=== PATIENT | male | born 1940 | race Caucasian/White ===

== ENCOUNTER 2019-10-13 21:32 | Inpatient (IN) | payer MEDICARE, OTHER ==
[~2019-10-13] VITALS: Ht 172.7 cm; Wt 85.3 kg
[~2019-10-13 21:32] MED LIST: ADULT LOW DOSE81 MG PO; AMLODIPINE BESY10 MG PO; ASPIRIN EC325 MG PO; ATORVASTATIN CA40 MG PO; CIPRO500 MG PO; COZAAR 50 MG TA50 M2; COZAAR 50 MG TA50 M2 PO; FINASTERIDE5 MG PO; FISH OIL 1,001000 M2; FISH OIL 1,001000 M2 PO; FLAGYL500 M1 PO; FLAGYL500 MG PO; FLOMAX0.4 MG PO; FLORINEF ACETA0.1 MG PO; HYDROCODONE-ACE10 ML PO; IRON; LISINOPRIL10 MG PO; LOPRESSOR25 PO; MAXZIDE-25 MG1 EACH PO; MIRALAX17 GM PO; NICOTINE TRANSD21 M1 TOP; NORCO 5-325 TA1 EAC1 PO; NORCO 5-325 TA1 EACH PO; NORVASC10 MG PO; OMEPRAZOLE20 MG PO; PERCOCET 10-321 EACH PO; PLAVIX 75 MG TA75 M1 PO; PLAVIX 75 MG TA75 MG PO; PROSCAR 5MG TABL5 MG PO; SIMVASTATIN10 MG PO; SIMVASTATIN40 MG; SPIRIVA PO; STRESSTABS1 EACH PO; TESSALON PERLE100 MG PO; TOPAMAX 25 MG T25 M1 PO; VIAGRA100 MG PO; XANAX XR1 MG PO; XANAX1 MG PO; ZOFRAN ODT4 M1 PO; ZOFRAN ODT4 MG PO
[2019-10-13 21:37] VITALS: BP 131/73
[2019-10-13 21:57] LABS: ABSOLUTE BASOPHILS 0.1 thou/uL (0.0-0.2); ABSOLUTE EOSINOPHILS 0.6 thou/uL (0.0-0.7); ABSOLUTE LYMPHOCYTES 2.2 thou/uL (0.8-5.3); ABSOLUTE NEUTROPHILS 4.6 thou/uL (1.6-8.1); BASOPHILS 1.3 %; EOSINOPHILS 6.9 %; HEMATOCRIT 44.8 % (42.0-52.0); HEMOGLOBIN 16.1 gm/dL (14.0-18.0); LYMPHOCYTES 25.7 %; MCH 35.7 pg (26.0-34.0); MCHC 35.9 g/dL (28.0-37.0); MCV 99.4 fL (80.0-100.0); MONOCYTES 12.1 %; MPV 7.9 fl. (7.2-11.1); NUCLEATED RBCS 0 /100WBC; PLATELET COUNT* 172 thou/uL (150-400); RBC 4.51 mil/uL (4.50-6.00); RDW-CV 13.1 % (10.5-14.5); WBC 8.6 thou/uL (4.0-11.0)
[2019-10-13 22:04] LABS: CALCIUM 8.9 mg/dL (8.5-10.1); CREATININE 1.2 mg/dL (0.6-1.3); POTASSIUM 3.9 mmol/L (3.5-5.1)
[2019-10-13] MEDS ORDERED: PROSCAR 5MG TABL5 M1 PO (22:04)
[2019-10-13] MEDS ORDERED: TOPROL XL25 MG PO (22:04)
[2019-10-13] MEDS ORDERED: SIMVASTATIN80 MG PO (22:04)
[2019-10-13] MEDS ORDERED: ALPRAZOLAM ER1 MG PO (22:05)
[2019-10-13 22:09] LABS: INR 1.1
[2019-10-13 22:14] LABS: ALBUMIN 3.7 g/dL (3.4-5.0); TOTAL BILIRUBIN 0.4 mg/dL (<0.1-1.0); TOTAL PROTEIN 7.3 g/dL (6.4-8.2)
[2019-10-14 01:00] VITALS: BP 124/72
[2019-10-14 02:10] VITALS: BP 124/76
[2019-10-14 04:00] VITALS: BP 142/79
[2019-10-14] MEDS ORDERED: COZAAR 25 MG TA25 M1 PO (05:12)
[2019-10-14 09:20] VITALS: BP 123/87
[2019-10-14 09:24] VITALS: BP 123/87
--- NOTE | 2019-10-14 10:16 | EKG ---
[place] [address] ELECTROCARDIOGRAM REPORT Name: MARCIE GUDINO [place] Room: [address] ADM IN M.R.#: [id number] Admission: 10/13/19 Attend Phys: Madison Chavez Discharge: Date of : 44 Report #: [id number] THIS REPORT FOR: //name// [facility] ED Test Date: 2019-10-13 Test Time: 21:39:10 Pat Name: MARCIE GUDINO Department: Room: [facility] Gender: M Hoister: ALON : 1940 Requested By: Violet Louis Order Number: [id number] MD: Jair Drew Measurements Intervals [place] Rate: 91 P: 48 MI: 230 QRS: 14 QRSD: 110 T: 91 QT: 365 QTc: 450 Interpretive Statements Sinus rhythm septal q waves noted Multiple ventricular premature complexes Prolonged MI interval nonspecific st changes Compared to ECG 08/31/2017 09:22:05 Ventricular premature complex(es) now present First degree AV block now present Q waves now present Electronically Signed On 10-14-2019 10:15:39 BUSINESS INTELLIGENCE REPORTING ANALYST by Jair Drew [email or web address] <ELECTRONICALLY SIGNED> By: Jair Drew MD, [facility] 10/14/19 1015 38 38 Jair Drew MD, [facility] /EPI
--- NOTE | 2019-10-14 16:21 | CON ---
[address] [address] CONSULTATION Name: MARCIE GUDINO [place] Room: [address] IN M.R.#: [id number] Admission: 10/13/19 Attend Phys: Madison Chavez Discharge: 10/14/19 Date of : 44 Report #: [id number] THIS REPORT FOR: //name// CC: Holland Webber DO DATE OF SERVICE: 10/14/2019 CARDIOLOGY CONSULTATION HISTORY OF PRESENT ILLNESS: The patient is a 79-year-old white male who I was asked to see in the hospital today after he complained of chest pain. The patient has extensive and complicated past medical history. Unfortunately, most of his care is not here at [facility]. He states that he had his first coronary angioplasty at [facility] when he was only 43 [address] Flores at [facility]. He has had several stents since that time. Several years ago, he eventually underwent quadruple coronary artery bypass surgery and replacement of the aortic valve using a tissue valve. 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 His last echocardiogram was within the past year. He is not very active because of arthritis in his legs. He was actually admitted here to [facility] earlier this month with anxiety and headache. He was doing well until last night, he was at home, felt a discomfort in his chest, did not go into his arms or jaw; shortness of breath, diaphoresis, nausea. He took antacids, did seem to help. The pain returned. His brought him to the Emergency Room last night. He has had no further chest pain. I was asked to see him for further evaluation and treatment. Denies any exertional dyspnea, palpitations, syncope, or cough. Denied the pain being related to food. PAST MEDICAL HISTORY: Otherwise, he has had previous resection of abdominal aortic aneurysm years ago. He has had hemorrhoids. He has had stents placed in his bilateral iliacs. He has a history of hypertension, hyperlipidemia, pacemaker inserted several years ago after he was noted to have 6-second pauses. CURRENT MEDICATIONS: Consist of the following list. He is on omeprazole, aspirin, Spiriva, Proscar, simvastatin, losartan, metoprolol, Xanax. He is no longer on Plavix. He does wear a nicotine patch. ALLERGIES: HE HAS AN ALLERGY TO CONTRAST AND PENICILLIN. FAMILY HISTORY: His mother had a heart attack. SOCIAL HISTORY: He is . He and his live here in [place]. He is a retired repairman. Smokes a pack of cigarettes a day, has a history of alcohol abuse, has not smoked and drank for years, [place] [address] CONSULTATION Name: MARCIE GUDINO [place] Room: [address] IN .RHilario#: [id number] Admission: 10/13/19 Attend Phys: Madison Chavez Discharge: 10/14/19 Date of : 44 Report #: [id number] REVIEW OF SYSTEMS: He apparently had a TIA in the past. He has a chronic cough. He has hemorrhoids, GI bleed in the past. No liver disease. He has had a kidney stone. He has bilateral stents in his iliacs. Denied claudication. No chronic skin condition. Does have an anxiety disorder, saw psychiatrist in the past. PHYSICAL EXAMINATION: GENERAL: Revealed an elderly male, lying in bed, appeared in no distress. VITAL SIGNS: He had a blood pressure of 130/70, pulse 70, he is afebrile. HEENT: He is anicteric. Conjunctivae pink. Mucous members are moist. NECK: Veins do not appear distended. No carotid bruits. CHEST: Clear to auscultation. CARDIOVASCULAR: Regular rate and rhythm, grade 2 systolic ejection murmur. ABDOMEN: Soft. EXTREMITIES: Had no edema. Dorsalis pedis pulse cannot be palpated. SKIN: Cool and dry. NEUROLOGIC: Nonfocal. LYMPH: No adenopathy. MUSCULOSKELETAL: No joint effusions. RADIOLOGICAL DATA: His ECG showed a sinus rhythm, a PVC, evidence of previous septal infarction, nonspecific ST-segment changes. His previous workup; he had an echocardiogram done in 2017 here at [facility] that showed left ventricular hypertrophy, ejection fraction 60%. There was evidence of a tissue aortic valve, no significant stenosis, no aortic insufficiency, mild mitral regurgitation. His workup in the Emergency Room last night; he had a portable chest x-ray that showed normal heart size, clear lung jauregui. He had CT scan of the abdomen done in 2017 that showed evidence of a distal aortic dissection. Previous carotid Doppler in 2017 showed no significant stenosis. Previous CT scan of the head in 2017 showed no acute abnormality. LABORATORY DATA: Sodium 140, BUN 19, creatinine 1.2. Liver function studies were normal. Troponin 0.06. His D-dimer 4.38. Hemoglobin 16.1. IMPRESSION AND RECOMMENDATIONS: 1. Chest pain. Possible unstable angina. Recommend repeat cardiac catheterization. 2. Previous contrast reaction. Recommend pretreatment with steroids. 3. Previous replacement of the aortic valve using a tissue valve. 4. Hyperlipidemia. The patient is on a statin drug. 5. Hypertension. The patient is on an ARB and beta indra. Previously, he was on a diuretic. 6. Previous insertion of a pacemaker. The patient does not appear to be paced at this time. 7. Previous resection of an abdominal aortic aneurysm with open repair. 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 8. Previous placement of bilateral iliac artery stents. 9. Tobacco abuse. 10. Previous history of alcohol abuse. 11. Anxiety. The patient was seen by psychologist. 12. History of kidney stone. <ELECTRONICALLY SIGNED> By: Jair Drew MD, FACC 10/14/19 1621 [id number] Allegra Drew MD, FACC /nt
--- NOTE | 2019-10-16 18:08 | CON ---
[address] [address] CONSULTATION Name: MARCIE GUDINO [place] Room: [address] IN M.R.#: [id number] Admission: 10/13/19 Attend Phys: Madison Chavez Discharge: 10/14/19 Date of : 44 Report #: [id number] THIS REPORT FOR: //name// CC: Holland Sanford DICTATED BY: [facility] DATE OF SERVICE: 10/14/2019 PRIMARY CARE PHYSICIAN: Holland Ha MD Please note at the time of this dictation, the patient was seen and physically examined by myself. REASON FOR CONSULTATION: Acid reflux. HISTORY OF PRESENT ILLNESS: This is a 79-year-old male who presented to the Emergency Room with what he complains of chest pain/acid reflux. He states that he was experiencing some nonexertional, nonradiating, nonpleuritic pain in the center portion of his chest. He states that he normally takes omeprazole 40 mg daily; however, when he started experiencing this 2 days prior to admission, he has taking omeprazole and Pepto-Bismol and additional omeprazole and Pepto-Bismol and his pain went away. When it came back subsequently in a very short period of time, he did the same thing and because of this and it did not go away as quickly, he prompted himself to come to the Emergency Room. He states he got very anxious about this and worried about that it could be something else. Prior to this episode 2 weeks prior, he states he had a similar episode in which he did the exact same thing and did not have a reoccurrence in a very short period of time. Otherwise, he states he denies any issues with acid reflux that he has been aware of. He continues to take his omeprazole 40 mg once a day. He does take Xanax regularly for his anxiety, which he has done for 30+ years. The patient did have an EGD done in [address] Yu and everything was normal. He did have a colonoscopy in 2018 that showed ascending tubular adenoma, polyps, some diverticulosis and internal hemorrhoids. ALLERGIES: PENICILLIN AND IODINE. MEDICATIONS FROM HOME: Include fish oil, omeprazole, aspirin, Spiriva, Proscar, simvastatin, losartan, Toprol, and alprazolam. PAST MEDICAL HISTORY: Coronary artery disease, hyperlipidemia, endocarditis history, prostate issues, anxiety. PAST SURGICAL HISTORY: He has had a CABG x 3 [place] [address] CONSULTATION Name: MARCIE GUDNIO [place] Room: [address]#: [id number] Admission: 10/13/19 Attend Phys: Madison Chavez Discharge: 10/14/19 Date of : 44 Report #: [id number] FAMILY HISTORY: Negative for any GI or female cancers. SOCIAL HISTORY: Denies any alcohol, tobacco or illegal drug use. REVIEW OF SYSTEMS: Twelve-point review of systems is essentially negative except what is mentioned in the HPI. PHYSICAL EXAMINATION: VITAL SIGNS: Temperature 36.3, pulse 88, respirations 21, blood pressure 123/87. HEART: Regular rate and rhythm. LUNGS: Clear. ABDOMEN: Soft, positive bowel sounds in all 4 quadrants with no masses or tenderness noted. LABORATORY DATA: Hemoglobin 16.1, white count is 8.6, platelets 172. LFTs are normal. Lipase is normal. PT is 11.0, INR 1.1, GFR is 59. Troponin is negative. His D-dimer was slightly elevated. IMPRESSION: 1. Gastroesophageal reflux disease. 2. History of colon polyps in 2018. 3. Anxiety. 4. Coronary artery disease. PLAN: 1. No plans for any GI intervention at this time. The patient is wanting to go home. 2. We will have the patient schedule an office visit for Dr. Reilly in 4-6 weeks who he wants to see. If he should have any further issues with recurrent acid reflux, he is to call the office and then we can get him in for procedure at that time. Thank you for allowing us to participate in this patient's care. Please do not hesitate to call with any questions in regard to this consult. <ELECTRONICALLY SIGNED> By: Yayo Mead DO 10/16/19 1808 [id number] [id number] Mead DO /nt
== END 2019-10-14 12:30 | disposition left against medical advice (07) | DRG 303 ==
LOC: M.ERS 21:32 → M.2W 23:11 → M.TBA-ER 23:11 → M.2W 10-14 01:07
PROVIDERS: Emergency Medicine; ADMIT Family Medicine
DX: I25.110 Atherosclerotic heart disease of native coronary artery with unstable angina pectoris (principal); K92.1 Melena; E78.5 Hyperlipidemia, unspecified; I71.4 Abdominal aortic aneurysm, without rupture; K64.9 Unspecified hemorrhoids; F17.210 Nicotine dependence, cigarettes, uncomplicated; K21.9 Gastro-esophageal reflux disease without esophagitis; I10 Essential (primary) hypertension; E78.00 Pure hypercholesterolemia, unspecified; F41.9 Anxiety disorder, unspecified; Z95.1 Presence of aortocoronary bypass graft; Z88.0 Allergy status to penicillin; Z91.041 Radiographic dye allergy status; Z79.82 Long term (current) use of aspirin; Z79.899 Other long term (current) drug therapy; Z95.5 Presence of coronary angioplasty implant and graft; Z79.01 Long term (current) use of anticoagulants; Z95.2 Presence of prosthetic heart valve; Z95.820 Peripheral vascular angioplasty status with implants and grafts; Z95.0 Presence of cardiac pacemaker; Z87.442 Personal history of urinary calculi; Z86.010 Personal history of colon polyps; K64.8 Other hemorrhoids; Z82.49 Family history of ischemic heart disease and other diseases of the circulatory system; Z80.1 Family history of malignant neoplasm of trachea, bronchus and lung; Z80.3 Family history of malignant neoplasm of breast